=== PATIENT | female | born 1950 | race Caucasian/White ===

== ENCOUNTER 2018-06-20 15:22 | Inpatient (IN) | payer MEDICARE, OTHER ==
[~2018-06-20] VITALS: Ht 162.6 cm; Wt 71.2 kg
[2018-06-20] MEDS ORDERED: Z GUARD REMEDY PASTE 57 GM TUBE TOP PRN (15:45)
[2018-06-20] MEDS ORDERED: ACET-2154 PO (15:47)
[2018-06-20] MEDS ORDERED: DOCU100C36 PO (15:49)
[2018-06-20] MEDS ORDERED: ONDA4SYR IM (16:05)
[2018-06-20] MEDS ORDERED: MAGN400O6 PO (16:05)
[2018-06-20] MEDS ORDERED: [UNRECOGNIZED DRUG - CODE] TP (16:05)
[2018-06-20] MEDS ORDERED: HYDR-3326 PO (16:05)
[2018-06-20] MEDS ORDERED: HYDR1VIA2 IVP (16:05)
[2018-06-20] MEDS ORDERED: ALBU2.5V38 IH (16:05)
[2018-06-20] MEDS ORDERED: BENZ1LOZ58 MM (16:05)
[2018-06-20] MEDS ORDERED: POLY15DR27 OP (16:05)
[2018-06-20 16:09] VITALS: BP 101/59
[2018-06-20] MEDS ORDERED: DOCUSATE SODIUM 100 MG CAPSULE PO SCH (17:00)
[2018-06-20] MEDS ORDERED: ACETAMINOPHEN 325 MG TABLET PO PRN (17:00)
[2018-06-20] MEDS ORDERED: POLYVINYL ALCOHOL OPHT DROPS 15 ML BOTTLE OP PRN (17:00)
[2018-06-20] MEDS ORDERED: MAGNESIUM HYDROXIDE 30 ML LIQUID UDC PO PRN ×2 (17:00→18:45)
[2018-06-20] MEDS ORDERED: ALBUTEROL SULFATE 2.5 MG/3 ML NEBU IH PRN (17:00)
[2018-06-20] MEDS: HYDROCODONE/APAP 5-325MG TABLET PO PRN (18:44)
[2018-06-20] MEDS: NEOMY/BACITRAC/POLYMI OINT 28.35 GM TUBE TP SCH (19:48)
[2018-06-20 20:00] VITALS: BP 102/63
[2018-06-20] MEDS: DOCUSATE SODIUM 100 MG CAPSULE PO SCH (20:10)
[2018-06-21 05:38] VITALS: BP 99/56
[2018-06-21] MEDS ORDERED: POLYVINYL ALCOHOL OPHT DROPS 15 ML BOTTLE EACHEYE PRN (08:30)
[2018-06-21] MEDS: NEOMY/BACITRAC/POLYMI OINT 28.35 GM TUBE TP SCH ×2 (08:39→16:41)
[2018-06-21] MEDS: DOCUSATE SODIUM 100 MG CAPSULE PO SCH ×2 (08:39→21:12)
[2018-06-21] MEDS: HYDROCODONE/APAP 5-325MG TABLET PO PRN ×2 (08:46→21:12)
[2018-06-21] MEDS ORDERED: ALPR0.5T8 PO (10:02)
[2018-06-21] MEDS ORDERED: CARV3.12 PO (10:02)
[2018-06-21] MEDS ORDERED: EZET10TA13 PO (10:03)
[2018-06-21] MEDS ORDERED: ALPRAZOLAM 0.5 MG TABLET PO PRN (11:45)
[2018-06-21] MEDS ORDERED: BISACODYL 10 MG SUPP.RECT RC ONE (12:15)
[2018-06-21] MEDS: LEVOFLOXACIN 500 MG TABLET PO SCH (13:03)
[2018-06-21 15:52] VITALS: BP 96/59
[2018-06-21 20:55] VITALS: BP 97/63
[2018-06-22 06:11] VITALS: BP 98/57
[2018-06-22 07:19] LABS: BASOPHILS % (AUTO) 0.7 % (0.0-2.0); EOSINOPHILS # (AUTO) 0.5 K/uL (0.0-0.7); EOSINOPHILS % (AUTO) 6.6 % (0.0-7.0); HEMATOCRIT 28.5 % (31.2-41.9); HEMOGLOBIN 9.9 g/dL (10.9-14.3); LYMPHOCYTES # (AUTO) 1.3 K/uL (20.0-40.0); LYMPHOCYTES % (AUTO) 18.5 % (20.5-51.5); MEAN CORPUSCULAR HEMOGLOBIN 32.5 uug (24.7-32.8); MEAN CORPUSCULAR HGB CONC 35 g/dL (32.3-35.6); MEAN CORPUSCULAR VOLUME 93.5 fL (75.5-95.3); MONOCYTES # (AUTO) 0.9 K/uL (2.0-10.0); MONOCYTES % (AUTO) 12.4 % (0.0-11.0); NEUTROPHILS # (AUTO) 4.4 K/uL (1.8-8.9); NEUTROPHILS % (AUTO) 61.8 % (38.5-71.5); PLATELET COUNT (AUTO) 254 K/uL (179-408); RED BLOOD CELL COUNT(AUTO) 3.04 MIL/uL (3.63-4.92); WHITE BLOOD COUNT (AUTO) 7.2 K/uL (3.8-11.8)
[2018-06-22 08:00] VITALS: BP 96/57
[2018-06-22 08:12] LABS: BILIRUBIN,TOTAL 0.4 mg/dL (0.2-1.0); CREATININE 0.7 mg/dL (0.6-1.3); MAGNESIUM 2.1 mg/dL (1.8-2.4); PHOSPHOROUS 3.7 mg/dL (2.5-4.9); POTASSIUM 4.2 mmol/L (3.5-5.1); TOTAL PROTEIN, SERUM 6.7 g/dL (6.4-8.2)
[2018-06-22 08:36] LABS: THYROID STIMULATING HORMONE 2.701 mIU/mL (0.358-3.740)
[2018-06-22] MEDS: DOCUSATE SODIUM 100 MG CAPSULE PO SCH ×2 (09:05→20:15)
[2018-06-22] MEDS: NEOMY/BACITRAC/POLYMI OINT 28.35 GM TUBE TP SCH ×2 (09:06→17:20)
[2018-06-22] MEDS: HYDROCODONE/APAP 5-325MG TABLET PO PRN ×2 (09:19→20:41)
[2018-06-22] MEDS: LEVOFLOXACIN 500 MG TABLET PO SCH (13:00)
[2018-06-22 15:54] VITALS: BP 92/52
[2018-06-22 19:45] VITALS: BP 102/61
[2018-06-23 06:33] VITALS: BP 96/59
[2018-06-23] MEDS: NEOMY/BACITRAC/POLYMI OINT 28.35 GM TUBE TP SCH (08:50)
[2018-06-23] MEDS: DOCUSATE SODIUM 100 MG CAPSULE PO SCH (08:50)
[2018-06-23] MEDS: HYDROCODONE/APAP 5-325MG TABLET PO PRN (08:50)
[2018-06-23 10:00] VITALS: BP 95/57
== END 2018-06-23 11:30 | disposition home health service (06) | DRG 561 ==
PROVIDERS: ADMIT Physical Medicine & Rehabilitation Pain Medicine; ATTEND Physical Medicine & Rehabilitation Pain Medicine
DX: Z47.89 Encounter for other orthopedic aftercare (principal); Z98.1 Arthrodesis status; R26.9 Unspecified abnormalities of gait and mobility; D50.9 Iron deficiency anemia, unspecified; E78.5 Hyperlipidemia, unspecified; I10 Essential (primary) hypertension; R73.03 Prediabetes
CPT/HCPCS: 36415; 83550; 83735; 84100; 84443; 85025; 92523; 92526; 92610; 97110; 97112; 97116; 97530; 97535